=== PATIENT | male | born 1995 | race Caucasian/White ===

== ENCOUNTER 2017-09-17 15:59 | Emergency (ER) | payer OTHER ==
[~2017-09-17] VITALS: Ht 170.2 cm; Wt 87.5 kg
[2017-09-17 16:35] VITALS: Ht 170.2 cm; Wt 87.5 kg
[2017-09-17] MEDS ORDERED: IBUPROFEN 200 MG TAB PO STA (16:46)
[2017-09-17] MEDS ORDERED: ACETAMINOPHEN 325 MG TAB PO STA (16:46)
[2017-09-17] MEDS ORDERED: SODIUM CHLORIDE 0.9% 1000ML 1,000 ML IV STA (16:55)
[2017-09-17 17:37] LABS: BASO % 0.4 %; BASO ABS # 0.05 K/uL (0-0.2); COMPLETE YES; EOS % 1.1 %; HEMATOCRIT 46.7 % (42-52); IG% 0.3 %; LYMPH ABS # 1.45 K/uL (1.2-3.4); MEAN CELL VOLUME 83.1 fL (80-100); MEAN CORPUSCULAR HEMOGLOBIN 30.1 pg (25-34); MEAN CORPUSCULAR HGB CONC 36.2 g/dl (32-36); MEAN PLATELET VOLUME 9.4 fL (7.4-10.4); MONO % 16.1 %; NEUT % 69.1 %; PLATELET COUNT 209 K/uL (130-400); RED BLOOD COUNT 5.62 M/uL (4.7-6.1); WHITE BLOOD COUNT 11.12 K/uL (4.8-10.8)
[2017-09-17 17:57] LABS: BUN/CREATININE RATIO 15.7 (10-20); CALCIUM 9.1 mg/dl (8.5-10.1); CREATININE 0.83 mg/dl (0.60-1.40); POTASSIUM 3.4 mmol/L (3.5-5.1)
--- NOTE | 2017-09-17 18:29 | DIAGNOSTIC IMAGING REPORT ---
CHEST 2 VIEWS ROUTINE CLINICAL HISTORY: Cough COMPARISON STUDY: No previous studies for comparison. FINDINGS: The cardiac and mediastinal contours are normal. There is no evidence of focal pulmonary consolidation. There is no evidence of failure. No pleural effusions are visualized.[ IMPRESSION: No active disease in the chest. Electronically signed by: Luisito Avalos M.D. 09/17/2017 6:27 PM Dictated Date/Time: 09/17/2017 6:27 PM
[2017-09-17 18:43] VITALS: BP 133/71; PULSE 85; TEMP 37; O2SAT 98
--- NOTE | 2017-09-17 21:31 | EMERGENCY ROOM VISIT NOTE ---
History Report prepared by Norris: Selina Hernandez Under the Supervision of: Dr. Elver Boston M.D. First contact with patient: 16:38 Chief Complaint: FLU LIKE SX Stated Complaint: SORE THROAT, FEVER, MUSCLE ACHE History of Present Illness The patient is a 22 year old male who presents to the Emergency Room with complaints of flu-like symptoms beginning 2 days ago. The patient states that he has had a sore throat and has been coughing up mucous. He also reports feeling light-headed and that he has had a loss of appetite. The patient also complains of nausea, but denies vomiting. The patient states that he has been febrile since yesterday and that his temperature was 100 today. He states he has had left trapezius pain when he bends his neck all the way to the right, but that he does not have muscle aches in general. He denies having a runny nose, chest pain, shortness of breath, headache, and a rash. The patient reports a history of an appendectomy. Source of History: patient Onset: 2 days ago Position: other (global) Quality: other (flu-like symptoms ) Associated Symptoms: + fevers, + sorethroat, + cough, + nausea, No headache , No chest pain, No SOB, No vomiting, No rash Note: additional symptoms: light-headedness, loss of appetite, left trapezius pain Review of Systems See HPI for pertinent positives & negatives. A total of 10 systems reviewed and were otherwise negative. Past Medical & Surgical Surgical Problems: (1) History of appendectomy Family History No pertinent family history stated. Social History Smoking Status: Never Smoker Occupation Status: [employer] student Current/Historical Medications No Active Prescriptions or Reported Meds Allergies Coded Allergies: No Known Allergies (Unverified , 09/17/17) Physical Exam Vital Signs Date Time Temp Pulse Resp B/P (MAP) Pulse Ox O2 Delivery O2 Flow Rate FiO2 09/17/17 18:43 37.0 85 18 133/71 98 Room Air 09/17/17 16:35 37.8 129 18 138/77 97 Room Air Physical Exam Constitutional: Vital signs reviewed. Eyes: Pupils are equal round reactive to light. Conjunctiva are noninjected. ENT: Mild erythema to the posterior oropharynx. No exudate, no trismus, no drooling. Mucous membranes are moist. Neck supple without meningeal signs. Respiratory: Clear to auscultation bilaterally. Breath sounds are equal bilaterally. Cardiovascular: Regular rate and rhythm. No rubs or gallops. GI: Soft, nondistended and nontender. Bowel sounds are present. No organomegaly. Musculoskeletal: No peripheral edema. No lower extremity tenderness. Integumentary: No cyanosis. Neurological: The patient is awake and alert. No focal deficits. Psychiatric: Normal affect. Medical Decision & Procedures ER Provider Diagnostic Interpretation: Radiology results as stated below per my review and the radiologist's interpretation: CHEST 2 VIEWS ROUTINE CLINICAL HISTORY: Cough COMPARISON STUDY: No previous studies for comparison. FINDINGS: The cardiac and mediastinal contours are normal. There is no evidence of focal pulmonary consolidation. There is no evidence of failure. No pleural effusions are visualized.[ IMPRESSION: No active disease in the chest. Electronically signed by: Luisito Avalos M.D. 09/17/2017 6:27 PM Dictated Date/Time: 09/17/2017 6:27 PM Laboratory Results 09/17/17 17:12 Red Blood Count 5.62, Mean Corpuscular Volume 83.1, Mean Corpuscular Hemoglobin 30.1, Mean Corpuscular Hemoglobin Concent 36.2, Mean Platelet Volume 9.4, Neutrophils (%) (Auto) 69.1, Lymphocytes (%) (Auto) 13.0, Monocytes (%) (Auto) 16.1, Eosinophils (%) (Auto) 1.1, Basophils (%) (Auto) 0.4, Neutrophils # (Auto ) 7.68, Lymphocytes # (Auto) 1.45, Monocytes # (Auto) 1.79, Eosinophils # (Auto ) 0.12, Basophils # (Auto) 0.05 09/17/17 17:12 Test 09/17/17 17:09 09/17/17 17:12 Influenza Type A Antigen Neg for Influ A (NEG) Influenza Type B Antigen Neg for Influ B (NEG) White Blood Count 11.12 K/uL (4.8-10.8) Red Blood Count 5.62 M/uL (4.7-6.1) Hemoglobin 16.9 g/dL (14.0-18.0) Hematocrit 46.7 % (42-52) Mean Corpuscular Volume 83.1 fL (80-100) Mean Corpuscular Hemoglobin 30.1 pg (25-34) Mean Corpuscular Hemoglobin Concent 36.2 g/dl (32-36) Platelet Count 209 K/uL (130-400) Mean Platelet Volume 9.4 fL (7.4-10.4) Neutrophils (%) (Auto) 69.1 % Lymphocytes (%) (Auto) 13.0 % Monocytes (%) (Auto) 16.1 % Eosinophils (%) (Auto) 1.1 % Basophils (%) (Auto) 0.4 % Neutrophils # (Auto) 7.68 K/uL (1.4-6.5) Lymphocytes # (Auto) 1.45 K/uL (1.2-3.4) Monocytes # (Auto) 1.79 K/uL (0.11-0.59) Eosinophils # (Auto) 0.12 K/uL (0-0.5) Basophils # (Auto) 0.05 K/uL (0-0.2) RDW Standard Deviation 37.4 fL (36.4-46.3) RDW Coefficient of Variation 12.4 % (11.5-14.5) Immature Granulocyte % (Auto) 0.3 % Immature Granulocyte # (Auto) 0.03 K/uL (0.00-0.02) Anion Gap 11.0 mmol/L (3-11) Est Creatinine Clear Calc Drug Dose 149.9 ml/min Estimated GFR () 146.8 Estimated GFR (Non- 126.7 BUN/Creatinine Ratio 15.7 (10-20) Calcium Level 9.1 mg/dl (8.5-10.1) Total Bilirubin 2.9 mg/dl (0.2-1) Direct Bilirubin 1.0 mg/dl (0-0.2) Aspartate Amino Transf (AST/SGOT) 20 U/L (15-37) Alanine Aminotransferase (ALT/SGPT) 33 U/L (12-78) Alkaline Phosphatase 82 U/L (45-117) Total Protein 9.0 gm/dl (6.4-8.2) Albumin 4.4 gm/dl (3.4-5.0) Monoscreen NEG (NEG) Laboratory results as reviewed by me. Medications Administered Medications (Trade) Dose Ordered Sig/Danyelle Route Start Time Stop Time Status Last Admin Dose Admin Ibuprofen (Advil Tab) 400 mg NOW STAT PO 09/17/17 16:46 09/17/17 16:47 DC 09/17/17 16:46 400 MG Acetaminophen (Tylenol Tab) 650 mg NOW STAT PO 09/17/17 16:46 09/17/17 16:47 DC 09/17/17 16:46 650 MG Sodium Chloride 1,000 ml @ 999 mls/hr Q1H1M STAT IV 09/17/17 16:55 09/17/17 17:55 DC 09/17/17 16:55 999 MLS/HR ED Course 1640: The patient was evaluated in room B6. A complete history and physical exam was performed. 1646: Ordered Tylenol Tab 650 mg PO, Ibuprofen 400 mg PO. 1655: Ordered Sodium Chloride 1,000 ml @ 999 mls/hr IV. 1836: I reassessed the patient and he is feeling better. I updated the patient on his results. 1840: Upon reevaluation, the patient appeared to have improvement of his symptoms. I discussed tonight's findings with him. He verbalized agreement of the treatment plan. He was discharged home. Medical Decision This is a 22-year-old male who presents with flulike symptoms. Differential diagnosis includes strep pharyngitis, viral syndrome, influenza, pneumonia, bronchitis, infectious mononucleosis. I did perform a limited focused review of portions of the patient's old chart on the electronic medical record. The patient has had no recent pertinent visits to this hospital. I did evaluate the patient as noted above. She is presenting with flulike symptoms. Did obtain a rapid strep test which was negative. IV access was established. I did treat the patient with normal saline IV. He was also given Tylenol and Motrin. I did order and personally review the patient's chest x- ray as described above. There is no evidence of pneumonia. I did order and review the patient's blood work as noted in the electronic medical record. Monospot is negative. His white blood cell count is slightly elevated which is a nonspecific finding. His bilirubin is slightly elevated. It's unclear why this is a case. Flu test was negative. I did reassess the patient. He is feeling better. I did discuss the test results with him. At this time his symptoms seem most consistent with a viral illness. I did recommend close follow with [facility] and recheck of his LFTs at a later date. He was discharged in good condition. Medication Reconcilliation Current Medication List: was personally reviewed by me Blood Pressure Screening Patient's blood pressure: Elevated blood pressure Blood pressure disposition: Referred to PCP Impression Primary Impression: Influenza-like symptoms Additional Impression: Abnormal LFTs Scribe Attestation The scribe's documentation has been prepared under my direct and personally reviewed by me in its entirety. I confirm that the note above accurately reflects all work, treatment, procedures, and medical decision making performed by me. Departure Information Dispostion Home / Self-Care Prescriptions No Active Prescriptions or Reported Meds Referrals No Doctor, Assigned (PCP) [facility] Forms HOME CARE DOCUMENTATION FORM, IMPORTANT VISIT INFORMATION Patient Instructions My [facility] Additional Instructions You have been examined and treated today on an emergency basis only. This is not a substitute for, or an effort to provide, complete comprehensive medical care. It is impossible to recognize and treat all injuries or illnesses in a single emergency department visit. It is therefore important that you follow up closely with [facility]. Call as soon as possible for an appointment. Have your doctor recheck your liver tests which were slightly elevated today. Return for worsening symptoms or if you develop chest pain, shortness of breath, rash, severe headache, vomiting, or any other concerning symptoms. Problem Qualifiers
== END 2017-09-17 16:50 | disposition home or self-care (01) ==
LOC: C.EDB 16:02
DX: R69 Illness, unspecified (principal); R94.5 Abnormal results of liver function studies